=== PATIENT | male | born 1995 | race Caucasian/White ===

== ENCOUNTER 2023-04-15 18:16 | Emergency (ER) | payer OTHER, SELFPAY ==
[2023-04-15 18:21] VITALS: BP 138/93; PULSE 103; RESP 16; TEMP 36.7; BMI 43.6
--- NOTE | 2023-04-15 18:50 | CT_ITS ---
[address] [address] Patient Name: RADHA WITT MRN: [id number] date: 1995 Sex: M Assigned Patient Location: ER Current Patient Location: .[facility] Accession/Order Number: [id number] Exam Date: 04/15/2023 18:46 Report Date: 04/15/2023 20:00 At the request of: ERICH BUTCHER Procedure: CT abdomen pelvis wo con Indication: Bilateral flank pain Comparison: None Procedure: Axial images were made from the diaphragms through the symphysis pubis. No oral contrast or Intravenous contrast was given. Dose reduction techniques were achieved by using automated exposure control and/or adjustment of mA and/or kV according to patient size and/or use of iterative reconstruction technique. Findings: Kidneys/ureters/bladder: A 3 mm nonobstructive stone is seen in proximal third of left ureter. No renal stones bilaterally. No right ureteral stones. No bladder stones. No hydronephrosis or hydroureter bilaterally. Liver/Biliary System: No liver masses. No intra or extrahepatic biliary dilatation. No gallstones or cholecystitis. Pancreas/Spleen/adrenals: No evidence of acute pancreatitis. Pancreatic duct is not dilated. No splenomegaly. No adrenal nodules. Aorta/Vessels: No evidence of aortic aneurysm. Evaluation of vessels is limited due to lack of IV contrast. Bowel/Fluid/Nodes: No bowel dilatation or bowel wall thickening. No evidence of bowel obstruction. Colonic diverticulosis with no evidence of diverticulitis. Normal appendix. No ascites or fluid collections. No adenopathy. Lung bases: Clear. Other findings: No aggressive osseous lesions are seen. Pelvis: No pelvic masses or adenopathy. No free fluid seen in the pelvis. Prostate and seminal vesicles grossly unremarkable. Other Findings: No aggressive osseous lesions are seen. CT/CT abdomen pelvis wo con Impression: 1. A 3 mm nonobstructive stone in proximal third of left ureter. No left hydronephrosis. 2. Colonic diverticulosis with no evidence of diverticulitis. Electronically authenticated by: MAYKEL IVORY Date: 04/15/2023 20:00
--- NOTE | 2023-04-15 19:17 | PC.NURSE ---
patient states wednesday he devleoped low back pain, pain increasing and radiates into left side of groin. states he has been naseous also. denies history of kidney stones.
[2023-04-15 19:19] LABS: Bilirubin Urine NEGATIVE (NEGATIVE); Blood Urine SMALL (NEGATIVE); Clarity Urine CLEAR (CLEAR); Color Urine LT. YELLOW (YELLOW); Glucose Urine UA NEGATIVE (NEGATIVE); Ketones Urine NEGATIVE (NEGATIVE); Leukocyte Esterase Urine NEGATIVE (NEGATIVE); Nitrite Urine NEGATIVE (NEGATIVE); Protein Urine NEGATIVE (NEG/TRACE); Specific Gravity Urine 1.025 (1.005-1.025); Urobilinogen Urine 0.2 EU/dL (0.2-1.0); pH Urine 5.5 (5.0-9.0)
--- NOTE | 2023-04-15 19:19 | ED.ABDPAIN1 ---
HPI - Abdominal Pain General Chief Complaint: Abdominal Pain Stated Complaint: HEMATURIA, FLANK PAIN Time Seen by Provider: 04/15/23 18:29 Source: patient Mode of arrival: walk-in History of Present Illness HPI narrative: patient is a 27-year-old male who presents to the emergency department with his mother for the evaluation of flank pain radiating into the abdomen. Patient developed bilateral flank pain five days ago without injury or trauma. He states the pain has begun to radiate to the left lower abdomen and groin. He has had no fevers, chills. He reports nausea but no vomiting. He has had no previous abdominal surgeries. No history of kidney issues or kidney stones. No medications taken prior to arrival. Related Data Previous Rx's Medication Instructions Recorded hydrocodone 5 mg-acetaminophen 325 1 tab PO Q6H PRN pain #15 tabs 04/15/23 mg tablet ketorolac 10 mg tablet 10 mg PO TID PRN pain #10 tabs 04/15/23 ondansetron 4 mg disintegrating 4 mg PO Q6H PRN nausea and 04/15/23 tablet vomiting #12 tabs tamsulosin 0.4 mg capsule (Flomax) 0.4 mg PO DAILY #7 caps 04/15/23 Allergies Allergy/AdvReac Type Severity Reaction Status Date / Time No Known Drug Allergies Allergy Verified 04/15/23 18:25 Review of Systems ROS Constitutional Denies: fever or chills Ears, nose, mouth, and throat Denies: throat pain Cardiovascular Denies: chest pain Respiratory Denies: shortness of breath or cough Gastrointestinal Reports: abdominal pain and nausea; Denies: vomiting Genitourinary Reports: blood in urine Musculoskeletal Reports: back pain; Denies: neck pain Integumentary/Breast Denies: rash Neurological Denies: headache Exam Narrative Exam Narrative: Gen.: Awake, alert, in no distress Head: Normocephalic, atraumatic ENT: Moist mucous membranes Respiratory: No respiratory distress, lungs clear bilaterally Cardio: Regular rate and rhythm Gastrointestinal: Abdomen is soft, nondistended and nontender to palpation Back: no CVA tenderness Extremities: Moves extremities equally, no injuries noted Psych: Normal mood and affect Neuro: No focal neuro deficit Skin: Warm, dry, intact Constitutional Vital Signs, click to edit/add: Last Vital Signs Temp 98.1 F 04/15/23 18:21 Pulse 80 04/15/23 21:15 Resp 18 04/15/23 21:15 BP 138/93 H 04/15/23 18:21 Pulse Ox 97 04/15/23 21:15 O2 Del Method Room Air 04/15/23 21:15 Course Vital Signs Vital signs: Vital Signs Temperature 98.1 F 04/15/23 18:21 Pulse Rate 103 H 04/15/23 18:21 Respiratory Rate 16 04/15/23 18:21 Blood Pressure 138/93 H 04/15/23 18:21 Temperature 98.1 F 04/15/23 18:21 Pulse Rate 80 04/15/23 21:15 Respiratory Rate 18 04/15/23 21:15 Blood Pressure 138/93 H 04/15/23 18:21 Pulse Oximetry 97 04/15/23 21:15 Oxygen Delivery Method Room Air 04/15/23 21:15 MDM - Abdominal Pain MDM Narrative Medical decision making narrative: patient was medicated with IV fluids, morphine, Zofran, Toradol. Lab studies show minimal leukocytosis, normal renal function and no evidence of urinary tract infection. Vital signs are stable. CT of the abdomen and pelvis shows a 3 mm stone in the left proximal ureter. Patient will be started on pain medication, Flomax, Zofran, Toradol. Follow-up with urology and return to the emergency department if symptoms change or worsen. Medical Records Attestation: I reviewed the patient's medical records. Lab Data Attestation: I reviewed the patient's lab results. Labs: Lab Results 04/15/23 04/15/23 Range/Units 19:10 19:16 WBC 12.5 H (4.0-11.0) 10^3/uL RBC 5.57 (4.70-6.10) 10^6/uL Hgb 15.9 (14.0-18.0) g/dL Hct 47.7 (42.0-54.0) % MCV 85.6 (80.0-94.0) fL MCH 28.5 (25.9-34.0) pg MCHC 33.3 (29.9-35.2) g/dL RDW 13.5 (11.0-15.0) % Plt Count 340 (150-450) 10^3/uL MPV 10.2 (9.5-13.5) fL Neut % (Auto) 64.4 (43.0-75.0) % Lymph % (Auto) 26.1 (20.5-60.0) % [place] % (Auto) 7.2 (1.7-12.0) % Eos % (Auto) 1.3 (0.9-7.0) % Baso % (Auto) 0.7 (0.2-2.0) % Neut # (Auto) 8.0 H (1.4-6.5) 10^3/uL Lymph # (Auto) 3.3 (1.2-3.8) 10^3/uL [place] # (Auto) 0.9 H (0.3-0.8) 10^3/uL Eos # (Auto) 0.2 (0.0-0.7) 10^3/uL Baso # (Auto) 0.1 (0.0-0.1) 10^3/uL Abs Immat Gran (auto) 0.04 H (0.00-0.03) 10^3/uL Imm/Tot Granulo (auto) 0.3 (0.0-0.5) % Sodium 141 (136-145) mmol/L Potassium 3.9 (3.5-5.1) mmol/L Chloride 104 (98-107) mmol/L Carbon Dioxide 27.6 (21.0-32.0) mmol/L Anion Gap 13.3 BUN 13.0 (7.0-18.0) mg/dL Creatinine 0.99 (0.70-1.30) mg/dL Est GFR ( Amer) >60 (>=60) Est GFR (Non-Af Amer) >60 (>=60) BUN/Creatinine Ratio 13.1 Glucose 107 H (74-106) mg/dL Calcium 8.7 (8.5-10.1) mg/dL Total Bilirubin 0.4 (0.2-1.0) mg/dL AST 22 (15-37) U/L ALT 43 (16-63) U/L Alkaline Phosphatase 85 (46-116) U/L Total Protein 8.1 (6.4-8.2) g/dL Albumin 4.3 (3.4-5.0) g/dL Globulin 3.8 g/dL Albumin/Globulin Ratio 1.1 Urine Color Lt. yellow (YELLOW) Urine Clarity Clear (CLEAR) Urine pH 5.5 (5.0-9.0) Ur Specific [place] 1.025 (1.005-1.025) Urine Protein Negative (NEG/TRACE) mg/dL Urine Glucose (UA) Negative (NEGATIVE) mg/dL Urine Ketones Negative (NEGATIVE) mg/dL Urine Occult Blood Small A (NEGATIVE) Urine Nitrite Negative (NEGATIVE) Urine Bilirubin Negative (NEGATIVE) Urine Urobilinogen 0.2 (0.2-1.0) EU/dL Ur Leukocyte Esterase Negative (NEGATIVE) Urine RBC 0-2 (0-2) #/HPF Urine WBC 0-2 A (NONE SEEN) #/HPF Ur Squamous Epith Cells Rare (NONE/RARE) #/LPF Urine Crystals None seen (None Seen) #/HPF Urine Bacteria None seen (NONE SEEN) #/HPF Urine Casts None seen (NONE SEEN) #/LPF Urine Mucus None seen (NONE SEEN) Ur Culture Indicated? No Imaging Data CT scan - abdomen: Attestation: I have reviewed the pertinent imaging results. Radiologist's impression: Procedure: CT abdomen pelvis wo con Indication: Bilateral flank pain Comparison: None Procedure: Axial images were made from the diaphragms through the symphysis pubis. No oral contrast or Intravenous contrast was given. Dose reduction techniques were achieved by using automated exposure control and/or adjustment of mA and/or kV according to patient size and/or use of iterative reconstruction technique. Findings: Kidneys/ureters/bladder: A 3 mm nonobstructive stone is seen in proximal third of left ureter. No renal stones bilaterally. No right ureteral stones. No bladder stones. No hydronephrosis or hydroureter bilaterally. Liver/Biliary System: No liver masses. No intra or extrahepatic biliary dilatation. No gallstones or cholecystitis. Pancreas/Spleen/adrenals: No evidence of acute pancreatitis. Pancreatic duct is not dilated. No splenomegaly. No adrenal nodules. Aorta/Vessels: No evidence of aortic aneurysm. Evaluation of vessels is limited due to lack of IV contrast. Bowel/Fluid/Nodes: No bowel dilatation or bowel wall thickening. No evidence of bowel obstruction. Colonic diverticulosis with no evidence of diverticulitis. Normal appendix. No ascites or fluid collections. No adenopathy. Lung bases: Clear. Other findings: No aggressive osseous lesions are seen. Pelvis: No pelvic masses or adenopathy. No free fluid seen in the pelvis. Prostate and seminal vesicles grossly unremarkable. Other Findings: No aggressive osseous lesions are seen. Impression: 1. A 3 mm nonobstructive stone in proximal third of left ureter. No left hydronephrosis. 2. Colonic diverticulosis with no evidence of diverticulitis. Electronically authenticated by: MAYKEL IVORY Date: 04/15/2023 20:00 Discharge Plan Discharge Chief Complaint: Abdominal Pain Clinical Impression: Kidney stone, Abdominal pain Patient Disposition: Home, Self-Care Time of Disposition Decision: 20:24 Condition: Good Prescriptions / Home Meds: New hydrocodone-acetaminophen 5-325 mg tablet 1 tab PO Q6H PRN (Reason: pain) Qty: 15 0RF Rx Instructions: DX: N20.0 tamsulosin [Flomax] 0.4 mg capsule 0.4 mg PO DAILY Qty: 7 0RF ketorolac 10 mg tablet 10 mg PO TID PRN (Reason: pain) Qty: 10 0RF ondansetron 4 mg tablet,disintegrating 4 mg PO Q6H PRN (Reason: nausea and vomiting) Qty: 12 0RF Instructions: Kidney Stones (ED) Stand Alone Forms: Portal Instructions Referrals: Physician,Non-Staff, MD [Primary Care Provider] - 1 week Discharge Date/Time: 04/15/23 21:17
[2023-04-15 19:23] LABS: Urine Microscopic Indicated YES
[2023-04-15 19:24] LABS: Basophils Absolute Auto 0.1 10^3/uL (0.0-0.1); Basophils Percent Auto 0.7 % (0.2-2.0); Eosinophils Absolute Auto 0.2 10^3/uL (0.0-0.7); Eosinophils Percent Auto 1.3 % (0.9-7.0); Hematocrit 47.7 % (42.0-54.0); Hemoglobin 15.9 g/dL (14.0-18.0); Immature Granulocytes Abs Auto 0.04 10^3/uL (0.00-0.03); Immature Granulocytes Pct Auto 0.3 % (0.0-0.5); Lymphocytes Absolute Auto 3.3 10^3/uL (1.2-3.8); Lymphocytes Percent Auto 26.1 % (20.5-60.0); Mean Corpuscular HGB Conc 33.3 g/dL (29.9-35.2); Mean Corpuscular Hemoglobin 28.5 pg (25.9-34.0); Mean Corpuscular Volume 85.6 fL (80.0-94.0); Mean Platelet Volume 10.2 fL (9.5-13.5); Monocytes Absolute Auto 0.9 10^3/uL (0.3-0.8); Monocytes Percent Auto 7.2 % (1.7-12.0); Neutrophils Percent Auto 64.4 % (43.0-75.0); Platelet Count 340 10^3/uL (150-450); Red Blood Count 5.57 10^6/uL (4.70-6.10); Red Cell Distribution Width 13.5 % (11.0-15.0); White Blood Count 12.5 10^3/uL (4.0-11.0)
[2023-04-15 19:30] LABS: Bacteria Urine NONE SEEN #/HPF (NONE SEEN); Cast Seen? NONE SEEN #/LPF (NONE SEEN); Crystals Seen? None Seen #/HPF (None Seen); Mucus Urine NONE SEEN (NONE SEEN); RBC Urine 0-2 #/HPF (0-2); Squamous Epithelial Cell Urine RARE #/LPF (NONE/RARE); WBC Urine 0-2 #/HPF (NONE SEEN)
[2023-04-15 19:31] LABS: Urine Culture Indicated NO
[2023-04-15] MEDS: KETOROLAC TROMETHAMINE 30 MG/ML VIAL IVP (19:34)
[2023-04-15] MEDS: MORPHINE SULFATE 4 MG/ML VIAL IV (19:34)
[2023-04-15] MEDS: ONDANSETRON PF 4 MG/2 ML VIAL IV (19:34)
[2023-04-15] MEDS: 0.9 % SODIUM CHLORIDE 1,000 ML 1000 ML IV (19:34)
[2023-04-15 19:48] LABS: Alanine Aminotransferase 43 U/L (16-63); Albumin Globulin Ratio 1.1; Albumin Level 4.3 g/dL (3.4-5.0); Alkaline Phosphatase 85 U/L (46-116); Anion Gap 13.3; Aspartate Amino Transferase 22 U/L (15-37); BUN Creatinine Ratio 13.1; Bilirubin Total 0.4 mg/dL (0.2-1.0); Calcium 8.7 mg/dL (8.5-10.1); Carbon Dioxide 27.6 mmol/L (21.0-32.0); Chloride 104 mmol/L (98-107); Estimated GFR (African America >60 (>=60); Estimated GFR (Non-African Ame >60 (>=60); Globulin 3.8 g/dL; Glucose 107 mg/dL (74-106); Potassium 3.9 mmol/L (3.5-5.1); Sodium 141 mmol/L (136-145); Total Protein 8.1 g/dL (6.4-8.2)
[2023-04-15 20:08] VITALS: PULSE 87; RESP 16; O2SAT 97
[2023-04-15] MEDS: HYDROMORPHONE HCL 0.5 MG/0.5 ML SYRINGE IV (21:01)
[2023-04-15] MEDS: ONDANSETRON 4 MG RAPDIS TABLET SL (21:01)
[2023-04-15 21:15] VITALS: PULSE 80; RESP 18; O2SAT 97
== END 2023-04-15 21:17 | disposition home or self-care (01) ==
PROVIDERS: Emergency Medicine; Physician Assistant; Emergency Provider Internal Medicine
DX: R10.9 Unspecified abdominal pain (principal); N20.0 Calculus of kidney
CPT/HCPCS: 36415; 74176; 80053; 81001; 85025; 96374; 96375; 99285; J1170